=== PATIENT | female | born 1970 | race Hispanic/Latino ===

== ENCOUNTER 2018-11-21 16:58 | Emergency (ER) | payer BC ==
--- NOTE | 2018-11-21 17:25 | Emergency Department Report ---
Blank Doc - Documentation Documentation: 48-year-old female that presents with left sided chest pain that describes it has tightness. Denies any SOB. This initial assessment/diagnostic orders/clinical plan/treatment(s) is/are subject to change based on patient's health status, clinical progression and re- assessment by fellow clinical providers in the ED. Further treatment and workup at subsequent clinical providers discretion. Patient/guardians urged not to elope from the ED as their condition may be serious if not clinically assessed and managed. Initial orders include: 1- Patient sent to MAIN ED for further evaluation and treatment 2- labs 3- EKG 4- CXR
--- NOTE | 2018-11-21 18:09 | XRay Report ---
CHEST 2 VIEWS INDICATION / CLINICAL INFORMATION: Chest Pain. COMPARISON: None available. FINDINGS: SUPPORT DEVICES: None. HEART / MEDIASTINUM: Changes of prior median sternotomy are noted LUNGS / PLEURA: No significant pulmonary or pleural abnormality. .No pneumothorax. ADDITIONAL FINDINGS: No significant additional findings. IMPRESSION: 1. No acute findings. Signer Name: Dangelo Sagastume MD Signed: 11/21/2018 6:05 PM Workstation Name: [id number]
[2018-11-21 18:45] LABS: Basophils # (Auto) 0.1 K/mm3 (0.0-0.1); Basophils % (Auto) 0.5 % (0.0-1.8); Eosinophils # (Auto) 0.2 K/mm3 (0.0-0.4); Eosinophils % (Auto) 1.2 % (0.0-4.3); Hematocrit 37.3 % (30.3-42.9); Lymphocytes # (Auto) 3.9 K/mm3 (1.2-5.4); Lymphocytes % (Auto) 31.7 % (13.4-35.0); Mean Corpuscular HGB Conc 35 % (30-34); Mean Corpuscular Volume 85 fl (79-97); Monocytes % (Auto) 8.4 % (0.0-7.3); Platelet Count 295 K/mm3 (140-440); Red Blood Count 4.38 M/mm3 (3.65-5.03); Red Cell Distribution Width 13.5 % (13.2-15.2)
[2018-11-21 18:55] LABS: INR 0.92 (0.87-1.13)
[2018-11-21 18:56] LABS: Partial Thromboplastin Time 25.9 Sec. (24.2-36.6)
[2018-11-21 19:01] LABS: Albumin 4.1 g/dL (3.9-5); BUN/Creatinine Ratio 15; Blood Urea Nitrogen 12 mg/dL (7-17); Calcium 9.3 mg/dL (8.4-10.2); Hemolysis Index 8
[2018-11-21 19:02] LABS: Alanine Aminotransferase < 5 units/L (7-56)
[2018-11-21] MEDS ORDERED: HYDROcodone/ACETAMINOPHEN 5-325 MG TAB PO ONE (20:54)
--- NOTE | 2018-11-21 21:28 | Emergency Department Report ---
ED Chest Pain HPI - General Chief Complaint: Chest Pain Stated Complaint: CHEST PAIN/TIGHTNESS/WEAKNESS Time Seen by Provider: 11/21/18 17:24 Source: patient Mode of arrival: Ambulatory Limitations: No Limitations - History of Present Illness Initial Comments: pt is a 48-year-old female that presents with left sided chest pain that describes it has tightness. Denies any SOB. MD Complaint: chest pain Onset/Timin -: days(s) Onset: during rest Pain Location: left chest Pain Radiation: none Severity scale (0 -10): 4 Quality: sharp Consistency: intermittent Improves With: nothing Worsens With: inspiration, palpation, movement re: denies: nausea, vomting Other Symptoms: denies: cough, fever, syncope, rash, acid taste in mouth, leg swelling, palpitations, burping Treatments Prior to Arrival: none - Related Data On Oral Contraceptives: No Home Medications Medication Instructions Recorded Confirmed Last Taken Ascorbic Acid [Vitamin C] 500 mg PO QDAY 01/08/16 01/08/16 01/08/16 Aspirin [Adult Low Dose Aspirin EC] 81 mg PO DAILY 01/08/16 01/08/16 01/08/16 AtorvaSTATin [Lipitor] 20 mg PO DAILY 01/08/16 01/08/16 01/08/16 Echinacea 400 mg PO DAILY 01/08/16 01/08/16 01/08/16 Lisinopril 40 mg PO DAILY 01/08/16 01/08/16 01/08/16 Venlafaxine Xr [Effexor XR] 75 mg PO DAILY 01/08/16 01/08/16 01/08/16 Previous Rx's Medication Instructions Recorded Last Taken Type Metoprolol Xl [Metoprolol 50 mg PO QDAY #30 tablet 01/08/16 Unknown Rx SUCCINATE ER TAB] Ranolazine ER [Ranexa ER] 500 mg PO BID #60 tab.er.12h 01/08/16 Unknown Rx Naproxen [Naprosyn] 500 mg PO BID PRN #30 tablet 11/21/18 Unknown Rx Allergies Allergy/AdvReac Type Severity Reaction Status Date / Time No Known Allergies Allergy Verified 05/25/13 11:22 Heart Score - HEART Score History: Moderately suspicious EKG: Normal Age: 45-65 Risk factors: 1-2 risk factors Troponin: < normal limit HEART Score: 3 ED Review of Systems ROS: Stated complaint: CHEST PAIN/TIGHTNESS/WEAKNESS Other details as noted in HPI Constitutional: denies: chills, fever Eyes: denies: eye pain, eye discharge, vision change ENT: denies: ear pain, throat pain Respiratory: denies: cough, shortness of breath, wheezing Cardiovascular: chest pain. denies: palpitations, dyspnea on exertion, edema, syncope, paroxysmal nocturnal dyspnea Endocrine: no symptoms reported Gastrointestinal: denies: abdominal pain, nausea, vomiting, diarrhea Genitourinary: denies: urgency, dysuria, discharge Musculoskeletal: denies: back pain, joint swelling, arthralgia Skin: denies: rash, lesions Neurological: denies: headache, weakness, paresthesias Psychiatric: denies: anxiety, depression Hematological/Lymphatic: denies: easy bleeding, easy bruising ED Past Medical Hx - Past Medical History Hx Hypertension: No Hx Heart Attack/AMI: No Hx Congestive Heart Failure: No - Surgical History Hx Open Heart Surgery: Yes (04/06/13) - Social History Smoking Status: Never Smoker Substance Use Type: None - Medications Home Medications: Home Medications Medication Instructions Recorded Confirmed Last Taken Type Ascorbic Acid [Vitamin C] 500 mg PO QDAY 01/08/16 01/08/16 01/08/16 History Aspirin [Adult Low Dose Aspirin EC] 81 mg PO DAILY 01/08/16 01/08/16 01/08/16 History AtorvaSTATin [Lipitor] 20 mg PO DAILY 01/08/16 01/08/16 01/08/16 History Echinacea 400 mg PO DAILY 01/08/16 01/08/16 01/08/16 History Lisinopril 40 mg PO DAILY 01/08/16 01/08/16 01/08/16 History Metoprolol Xl [Metoprolol 50 mg PO QDAY #30 tablet 01/08/16 Unknown Rx SUCCINATE ER TAB] Ranolazine ER [Ranexa ER] 500 mg PO BID #60 tab.er.12h 01/08/16 Unknown Rx Venlafaxine Xr [Effexor XR] 75 mg PO DAILY 01/08/16 01/08/16 01/08/16 History Naproxen [Naprosyn] 500 mg PO BID PRN #30 tablet 11/21/18 Unknown Rx ED Physical Exam - General Limitations: No Limitations General appearance: alert, in no apparent distress - Head Head exam: Present: atraumatic, normocephalic - Eye Eye exam: Present: normal appearance, PERRL, EOMI Pupils: Present: normal accommodation - ENT ENT exam: Present: mucous membranes moist - Neck Neck exam: Present: normal inspection, full ROM. Absent: tenderness, lymphadenopathy, thyromegaly - Respiratory Respiratory exam: Present: normal lung sounds bilaterally, chest wall tenderness (left anterior lateral chest pain to palpation no crepitus no erythema no echymosis ). Absent: respiratory distress, wheezes, stridor - Cardiovascular Cardiovascular Exam: Present: regular rate, normal rhythm, normal heart sounds. Absent: systolic murmur, diastolic murmur, rubs, gallop - GI/Abdominal GI/Abdominal exam: Present: soft, normal bowel sounds. Absent: distended, tenderness, bruit, hernia - Rectal Rectal exam: Present: deferred - Extremities Exam Extremities exam: Present: normal inspection, full ROM, normal capillary refill. Absent: tenderness, pedal edema, calf tenderness - Back Exam Back exam: Present: normal inspection, full ROM, tenderness. Absent: CVA tenderness (R), CVA tenderness (L), muscle spasm, paraspinal tenderness, rash noted - Neurological Exam Neurological exam: Present: alert, oriented X3, CN II-XII intact, normal gait, reflexes normal. Absent: motor sensory deficit - Psychiatric Psychiatric exam: Present: normal affect, normal mood - Skin Skin exam: Present: warm, dry, intact, normal color. Absent: rash ED Course Vital Signs 11/21/18 11/21/18 11/21/18 17:09 17:25 21:22 Temperature 97.5 F L 97.5 F L 97.7 F Pulse Rate 65 65 61 Respiratory 16 16 18 Rate Blood Pressure 124/69 124/69 Blood Pressure 126/66 [Left] O2 Sat by Pulse 100 100 100 Oximetry SHANTI score - Shanti Score Age > 65: (0) No Aspirin use within the Past 7 Days: (0) No 3 or more CAD Risk Factors: (0) No 2 or more Angina events in past 24 hrs: (1) Yes Known CAD with more than 50% Stenosis: (1) Yes Elevated Cardiac Markers: (0) No ST Deviation Greater than 0.5mm: (0) No SHANTI Score: 2 ED Medical Decision Making - Lab Data Result diagrams: 11/21/18 18:26 11/21/18 18:26 - Radiology Data Radiology results: report reviewed, image reviewed Normal CXR - Medical Decision Making Heart score is 3 tenderness score is 2 chest wall pain is improved with medications given in ED troponin less than 0.012 and a normal EKG normal sinus rhythm chest x-ray is clear no infiltrates no opacities is likely chest wall p ain as is reproducible to exam palpation and inspiration plan naproxen follow up with cardiology [facility] Dr Esparza as scheduled, and pcp Dr. Ellis, pt and verbalized agreement and understanding with same., pt dc'd to home in stable condition at this time. Is Critical care attestation.: If time is entered above; I have spent that time in minutes in the direct care of this critically ill patient, excluding procedure time. 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 Esparza, and your PCP dr. Ellis in 2-3 days return to ed if symptoms worsen Prescriptions: Naproxen [Naprosyn] 500 mg PO BID PRN #30 tablet PRN Reason: pain Forms: Work/School Release Form(ED) Time of Disposition: 22:23
[2018-11-21 22:49] VITALS: BP 117/65
== END 2018-11-21 22:49 | disposition home or self-care (01) ==
LOC: ED 16:58
DX: R07.89 Other chest pain (principal); Z79.899 Other long term (current) drug therapy; Z98.890 Other specified postprocedural states
CPT/HCPCS: 36415; 71046; 80053; 84484; 85025; 85610; 85730; 93005; 93010